=== PATIENT | female | born 1975 | race Caucasian/White ===

== ENCOUNTER 2017-09-27 09:45 | Emergency (ER) | payer MEDICAID ==
[~2017-09-27] VITALS: Ht 170.2 cm; Wt 83.0 kg
[2017-09-27 09:48] VITALS: BP 124/84
[2017-09-27] MEDS ORDERED: HYDROcodone/APAP 5/325 TABLET ONE (10:26)
[2017-09-27] MEDS ORDERED: HYDROcodone/APAP 5/325 TABLET PO ONE (10:30)
== END 2017-09-27 11:29 | disposition home or self-care (01) ==
LOC: ED 11:00
DX: S20.212A Contusion of left front wall of thorax, initial encounter (principal); M54.2 Cervicalgia; Y04.8XXA Assault by other bodily force, initial encounter; Y93.89 Activity, other specified; Y92.098 Other place in other non-institutional residence as the place of occurrence of the external cause; Y99.8 Other external cause status; F17.210 Nicotine dependence, cigarettes, uncomplicated
CPT/HCPCS: 70450; 72125; 99284

== ENCOUNTER 2018-08-14 18:24 | Emergency (ER) | payer MEDICAID ==
[~2018-08-14] VITALS: Ht 170.2 cm; Wt 92.1 kg
[2018-08-14] MEDS ORDERED: SODIUM CHLORIDE 0.9% 1,000ML IVBOLUS ONE (19:00)
[2018-08-14] MEDS ORDERED: CHLORDIAZEPOXIDE 25 MG CAPSULE PO ONE (19:00)
[2018-08-14] MEDS ORDERED: LORazepam 2 MG/ML, 1ML IVPush PRN (19:00)
[2018-08-14] MEDS ORDERED: THIAMINE 100 MG in SODIUM CHLORIDE 0.9% 50 ML IVPB ONE (19:00)
[2018-08-14] MEDS ORDERED: SODIUM CHLORIDE FLUSH 10ML SYR IVF ONE (19:00)
[2018-08-14] MEDS ORDERED: THIAMINE 100 MG/ML, 2ML ONE (19:01)
[2018-08-14] MEDS ORDERED: CHLORDIAZEPOXIDE 25 MG CAPSULE ONE (19:02)
[2018-08-14] MEDS ORDERED: LORazepam 2 MG/ML, 1ML ONE (19:03)
--- NOTE | 2018-08-14 19:25 | NUR ---
SEE TRIAGE NOTE. IV PLACED, LABS DRAWN WITH START. NS BOLUS AND MEDS GIVEN PER ERP ORDER. PT WITHOUT TREMORS AT THIS TIME. 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 PT A/O X 4 COOPERATIVE WITH CARE. PT REPORTS NUMEROUS ATTEMPTS TO DETOX OVER MANY YEARS. CALL LIGHT WITHIN REACH, WARM BLANKET PROVIDED.
[2018-08-14 19:28] LABS: BASOPHILS # (AUTO) 0.03 x10^3/uL (0-0.1); BASOPHILS % (AUTO) 1 % (0-1); EOSINOPHILS # (AUTO) 0.14 x10^3/uL (0-0.4); EOSINOPHILS % (AUTO) 3 % (1-7); LYMPHOCYTES # (AUTO) 2.33 x10^3/uL (1-3.4); LYMPHOCYTES % (AUTO) 44 % (22-44); MD NO; MEAN CORPUSCULAR HEMOGLOBIN 33.2 pg (27.0-34.8); MEAN CORPUSCULAR HGB CONC 34.5 g/dL (32.4-35.8); MEAN CORPUSCULAR VOLUME 96.2 fL (80-100); MEAN PLATELET VOLUME 9.1 fL (7.4-10.4); MONOCYTES # (AUTO) 0.58 x10^3/uL (0.2-0.8); MONOCYTES % (AUTO) 11 % (2-9); NEUTROPHILS # (AUTO) 2.19 x10^3/uL (1.8-6.8); NEUTROPHILS % (AUTO) 42 % (42-75); PLATELET COUNT 124 x10^3/uL (130-400); RED BLOOD COUNT 4.23 x10^6/uL (3.82-5.3); RED CELL DISTRIBUTION WIDTH 15.6 % (9.6-15.2)
[2018-08-14 19:34] LABS: ALANINE AMINOTRANSFERASE 44 U/L (12-78); ALBUMIN 3.3 g/dL (3.4-5.0); ANION GAP 9 mmol/L (5-15); CALCIUM 7.8 mg/dL (8.5-10.1); CHLORIDE 109 mmol/L (98-107)
[2018-08-14 19:37] LABS: ALKALINE PHOSPHATASE 135 U/L (45-117); BILIRUBIN,TOTAL 0.4 mg/dL (0.2-1.0); TOTAL PROTEIN 7.2 g/dL (6.4-8.2)
--- NOTE | 2018-08-14 19:57 | NUR ---
PT UP TO BR, WALKING WITH STEADY GAIT. JUICE PROVIDED PER REQUEST. FAMILY MEMBER PROVIDED FOOD.
--- NOTE | 2018-08-14 19:58 | NUR ---
D/T PT ALCOHOL LEVEL AT .225 AND NO S/S OF WITHDRAWAL, LAB RESULTS BACK, PT FOR RECHECK.
[2018-08-14 21:03] VITALS: BP 112/51
== END 2018-08-14 21:06 | disposition home or self-care (01) ==
LOC: ED 19:10
DX: F10.239 Alcohol dependence with withdrawal, unspecified (principal)
CPT/HCPCS: 36415; 80053; 80307; 83735; 85025; 93005; 96365; 96366; 96375; 99284; J2060; J3411; J7030

== ENCOUNTER 2020-10-25 08:17 | Emergency (ER) | payer MEDICAID ==
[~2020-10-25] VITALS: Ht 165.1 cm; Wt 80.0 kg
[2020-10-25] MEDS ORDERED: LORazepam 2 MG/ML, 1ML IVPush ONE (08:30)
[2020-10-25] MEDS ORDERED: SODIUM CHLORIDE 0.9% 1,000ML IVBOLUS ONE (08:30)
[2020-10-25] MEDS ORDERED: SODIUM CHLORIDE FLUSH 10ML SYR IVF ONE (08:30)
[2020-10-25] MEDS ORDERED: LORazepam 2 MG/ML, 1ML ONE (08:39)
--- NOTE | 2020-10-25 08:44 | NUR ---
JANA, REPORT TAKEN FROM EMS. PT C/O LEFT CP RADATING TO LEFT ARM WITH LEFT ARM WITH LEFT ARM TINGLING ONSET YESTERDAY. PT IS AN ALCOHOLIC, RECENT RELAPSE. "FIFTH" WHISKY CONSUMED LAST NIGHT. PT SEEKING HELP TO DETOX, "I'M PRETTY SURE MY CHEST PAIN IS FROM MY ALCOHOL WITHDRAWAL." PT ATTACHED TO ALL MONTIORS, EKG TAKEN BY EDT. PT SEEN BY RIANA CUNNINGHAM, TO HAVE LABWORK, CXR. PT A&O, RESPS EVEN AND UNLABORED. SINUS TACH, RATE 100'S WITH NO ECTOPY. CALL LIGHT IN REACH.
--- NOTE | 2020-10-25 08:49 | NUR ---
TASK RN: MEDICATED PER EMAR PLACED ON 2L NC PRECAUTION D/T SEDATIVE MEDS
[2020-10-25 08:56] LABS: BASOPHILS % (AUTO) 2 % (0-1); EOSINOPHILS % (AUTO) 1 % (1-7); LYMPHOCYTES % (AUTO) 43 % (22-44); MEAN PLATELET VOLUME 8.9 fL (7.4-10.4); MONOCYTES % (AUTO) 9 % (2-9); NEUTROPHILS % (AUTO) 45 % (42-75); PLATELET COUNT 154 x10^3/uL (130-400); RED BLOOD COUNT 4.35 x10^6/uL (3.82-5.3); RED CELL DISTRIBUTION WIDTH 16.8 % (9.6-15.2)
[2020-10-25 09:03] LABS: ALBUMIN 3.5 g/dL (3.4-5.0); ANION GAP 11 mmol/L (5-15); CALCIUM 8.2 mg/dL (8.5-10.1); CHLORIDE 104 mmol/L (98-107)
[2020-10-25 09:04] LABS: MD NO
[2020-10-25 09:16] LABS: ALANINE AMINOTRANSFERASE 151 U/L (12-78); ALKALINE PHOSPHATASE 151 U/L (45-117); CREATININE 0.72 mg/dL (0.55-1.02); TOTAL PROTEIN 7.9 g/dL (6.4-8.2); TROPONIN I < 0.015 ng/mL (0.000-0.045)
--- NOTE | 2020-10-25 09:29 | NUR ---
PT A&O, RESPS EVEN AND UNLABORED. 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 PT REQUESTING SNACKS, STATING CHEST PAIN RESOLVED. RIANA CUNNINGHAM REASSESSED PT, PT TO BE DISCHARGED.
[2020-10-25] MEDS ORDERED: MAGNESIUM OXIDE 400 MG TABLET PO ONE (09:30)
[2020-10-25] MEDS ORDERED: MAGNESIUM OXIDE 400 MG TABLET ONE (09:44)
--- NOTE | 2020-10-25 10:05 | NUR ---
pt a&o, resps even and unlabored. sinus tach on classroom monitor with no ectopy. ciwa score 0 at dc. pt reports chest pain subsided, tolerating POs with no n/v. PIV dc'd with tip intact. pt given dc instructions with referral to PCP and behavioral health for detox. pt educated by MD and RN regarding safe use of current ativan script which as prescribed within last two weeks at [facility] (per pt). pt educated not to drive today, states she has a ride home. pt ambulatory to dc desk with steady gait, all questions answered.
[2020-10-25 10:20] VITALS: BP 130/96
== END 2020-10-25 10:22 | disposition home or self-care (01) ==
LOC: ED 09:00
DX: R07.2 Precordial pain (principal); F10.239 Alcohol dependence with withdrawal, unspecified; R11.10 Vomiting, unspecified; Y90.0 Blood alcohol level of less than 20 mg/100 ml
CPT/HCPCS: 36415; 71045; 80053; 83735; 84443; 84484; 85025; 93005; 96361; 96374; 99285; J2060; J7030